=== PATIENT | male | born 1970 | race Two or more races ===

== ENCOUNTER → 2021-02-03 | Outpatient (CLI) | payer OTHER | END | disposition home or self-care (01) | LOC: TOM 10:15 | PROVIDERS: ATTEND Specialist | DX: M25.551 Pain in right hip (principal); E08.69 Diabetes mellitus due to underlying condition with other specified complication ==

== ENCOUNTER → 2023-04-06 | Outpatient (CLI) | payer OTHER | END | disposition home or self-care (01) | LOC: TOM 11:07 | PROVIDERS: ATTEND Specialist | DX: M25.59 Pain in other specified joint (principal) ==

== ENCOUNTER 2024-12-08 09:07 | Outpatient (CLI) | payer OTHER | END 2024-12-08 09:17 | disposition home or self-care (01) | LOC: MRI 09:07 | PROVIDERS: ATTEND Specialist | DX: M25.511 Pain in right shoulder (principal) | CPT/HCPCS: 73218 ==